=== PATIENT | female | born 1945 | race Two or more races ===

== ENCOUNTER 2017-11-24 09:13 | Outpatient (CLI) | payer OTHER ==
[~2017-11-24 09:13] MED LIST: CAPOTEN50 MG; CAPTOPRIL; GLUCOPHAGE XR500 MG; NORVASC10 MG; PAXIL30 MG
== END 2017-11-24 09:19 | disposition home or self-care (01) ==
LOC: RAD 09:13
DX: J40 Bronchitis, not specified as acute or chronic (principal)

== ENCOUNTER 2018-03-15 07:29 | Outpatient (CLI) | payer OTHER ==
[~2018-03-15] VITALS: Ht 152.4 cm; Wt 61.2 kg
== END 2018-03-15 07:45 | disposition home or self-care (01) ==
LOC: OFIC 805 07:29
DX: H60.8X3 Other otitis externa, bilateral (principal); H61.23 Impacted cerumen, bilateral; H90.3 Sensorineural hearing loss, bilateral; H93.13 Tinnitus, bilateral; R42 Dizziness and giddiness

== ENCOUNTER 2018-06-05 07:41 | Outpatient (CLI) | payer OTHER ==
[~2018-06-05] VITALS: Ht 157.5 cm; Wt 54.4 kg
[2018-06-05] MEDS ORDERED: LIPO-FLAVONOID1 EACH PO (09:56)
[2018-06-05] MEDS ORDERED: NAPROXEN SODIU550 M1 PO (09:56)
== END 2018-06-05 08:00 | disposition home or self-care (01) ==
LOC: OFIC 805 07:41
DX: H61.23 Impacted cerumen, bilateral (principal); H90.3 Sensorineural hearing loss, bilateral; H93.13 Tinnitus, bilateral; G44.89 Other headache syndrome; H92.03 Otalgia, bilateral

== ENCOUNTER 2018-06-19 07:58 | Outpatient (CLI) | payer OTHER ==
[~2018-06-19] VITALS: Ht 152.4 cm; Wt 54.4 kg
[~2018-06-19 07:58] MED LIST changes: +LIPO-FLAVONOID1 EACH PO; +NAPROXEN SODIU550 M1 PO
== END 2018-06-19 08:15 | disposition home or self-care (01) ==
LOC: OFIC 805 07:58
DX: H93.13 Tinnitus, bilateral (principal); H90.3 Sensorineural hearing loss, bilateral; G44.89 Other headache syndrome; H92.03 Otalgia, bilateral; R42 Dizziness and giddiness